=== PATIENT | male | born 1945 ===

== ENCOUNTER 2018-07-05 12:58 | Observation (INO) | payer MEDICARE, OTHER ==
--- NOTE | 2018-07-05 14:25 | ED PDOC ---
HPI: SOB/CHF/COPD Time Seen by Provider: 07/05/18 13:25 Chief Complaint (Nursing): Chest Pain Chief Complaint (Provider): Chest Pain History Per: Patient History/Exam Limitations: no limitations Onset/Duration Of Symptoms: Days (x 1) Current Symptoms Are (Timing): Still Present Associated Symptoms: Light-headedness Additional Complaint(s): 72 year old male with a history of hypertension, CAD, TURP prostate cancer presents with difficulty breathing and mild chest pain. He always feels short of breath. However, it is more so today and associated with weakness. Patient was sent from PMD's office where he was having a check up. Referred to ED for further evaluation. Patient has history of open heart surgery and removal of pace maker in the past due to infected leads. Denies vomiting, cough and abdominal pain. PMD: Dr. Saranya Almeida Past Medical History Reviewed: Historical Data, Nursing Documentation, Vital Signs Vital Signs: Last Vital Signs Temp 98.5 F 07/05/18 13:05 Pulse 56 L 07/05/18 13:16 Resp 18 07/05/18 13:05 BP 139/76 07/05/18 13:16 Pulse Ox 100 07/05/18 15:43 - Medical History PMH: Anxiety, Arthritis, Gastritis, HTN, Hypercholesterolemia Denies: HIV, Chronic Kidney Disease - Surgical History Surgical History: CABG (2008 pt states they think they had double bypass but is not sure), Coronary Stent (2 stents 2008), Endoscopy (2012), Pacemaker ( inserted 2004, removed 2007) - Family History Family History: States: Unknown Family Hx - Immunization History Hx Tetanus Toxoid Vaccination: No - Home Medications Home Medications: Ambulatory Orders Medication Instructions Recorded Alprazolam 1 mg PO TID 02/25/14 Atorvastatin [Lipitor] 10 mg PO HS 02/25/14 Omeprazole 20 mg PO BID 02/25/14 Carvedilol [Coreg] 25 mg PO Q12 03/17/17 Lisinopril/Hydrochlorothiazide 1 tab PO DAILY 03/17/17 [Lisinopril-Hctz 10-12.5 mg Tab] Aspirin [Adult Low Dose Aspirin EC] 1 tab PO DAILY 07/05/18 Lipase/Protease/Amylase [Vernon Dr 1 cap PO TID 07/05/18 24,000 Units Capsule] Ondansetron HCl [Zofran] 4 mg PO Q4 PRN 07/05/18 amLODIPine [Norvasc] 5 mg PO DAILY 07/05/18 - Allergies Allergies/Adverse Reactions: Allergies Allergy/AdvReac Type Severity Reaction Status Date / Time duloxetine [From Cymbalta] Allergy Intermediate RASH Verified 07/05/18 13:05 IV CONTRAST Allergy Intermediate RASH Uncoded 07/05/18 13:05 Review of Systems ROS Statement: Except As Marked, All Systems Reviewed And Found Negative Cardiovascular: Positive for: Chest Pain (mild) Respiratory: Positive for: Shortness of Breath Physical Exam - Reviewed Nursing Documentation Reviewed: Yes Vital Signs Reviewed: Yes - Physical Exam Appears: Positive for: Non-toxic, No Acute Distress Head Exam: Positive for: ATRAUMATIC, NORMAL INSPECTION, NORMOCEPHALIC Skin: Positive for: Normal Color, Warm, Dry Eye Exam: Positive for: EOMI, Normal appearance, PERRL Neck: Positive for: Normal, Painless ROM Cardiovascular/Chest: Positive for: Bradycardia (with regular rhythm) Respiratory: Positive for: Normal Breath Sounds. Negative for: Respiratory Distress Gastrointestinal/Abdominal: Positive for: Normal Exam, Soft. Negative for: Tenderness Extremity: Positive for: Normal ROM. Negative for: Deformity Neurologic/Psych: Positive for: Alert, Oriented (x 3). Negative for: Motor/ Sensory Deficits - Laboratory Results Result Diagrams: 07/05/18 14:44 07/05/18 14:44 - ECG O2 Sat by Pulse Oximetry: 100 (RA) Pulse Ox Interpretation: Normal Medical Decision Making Medical Decision Makin:18 --CMP --CBC --troponin I --CXR CXR shows no active disease. Time: 1543 Patient to be admitted under hospitalist due to bradycardia. Time: 1710 CT HEAD FINDINGS: HEMORRHAGE: No intracranial hemorrhage. BRAIN: There are mild chronic microangiopathic changes. There is no mass, mass effect or abnormal extra-axial fluid collection. There is no territorial infarction. The midline sagittal structures are normal. VENTRICLES: There is mild age-related global parenchymal volume loss and proportionate enlargement of the ventricles and cortical sulci. CALVARIUM: The skull base and calvarium are normal. PARANASAL SINUSES: Predominantly clear. MASTOID AIR CELLS: Predominantly clear. OTHER FINDINGS: None. IMPRESSION: No acute intracranial abnormality. Mild chronic microangiopathic changes and mild age-related global parenchymal volume loss. Scribe Attestation: Documented by Linn Nielsen, acting as a scribe for Tamir Snider MD Provider Scribe Attestation: All medical record entries made by the Scribe were at my direction and personally dictated by me. I have reviewed the chart and agree that the record accurately reflects my personal performance of the history, physical exam, medical decision making, and the department course for this patient. I have also personally directed, reviewed, and agree with the discharge instructions and disposition. Disposition - Disposition
--- NOTE | 2018-07-05 14:52 | RAD ---
Date of service: 07/05/2018 HISTORY: sob COMPARISON: No prior. FINDINGS: LUNGS: The lungs are well inflated and clear. PLEURA: No significant pleural effusion identified, no pneumothorax apparent. CARDIOVASCULAR: The heart is normal in size. Status post CABG. There is a right-sided lead which terminates in the right ventricle. OSSEOUS STRUCTURES: No significant abnormalities. VISUALIZED UPPER ABDOMEN: Normal. OTHER FINDINGS: None. IMPRESSION: No active pulmonary disease.
[2018-07-05 15:00] LABS: BASO # 0.1 K/uL (0.0-0.2); BASO % 1.2 % (0.0-2.0); EOS % 11.5 % (0.0-4.0); HEMOGLOBIN 14.9 g/dL (12.0-18.0); LYMPH # 1.7 K/uL (1.0-4.3); LYMPH % 19.5 % (20.0-40.0); MEAN CELL VOLUME 82.8 fl (80.0-94.0); MEAN CORPUSCULAR HEMOGLOBIN 27.8 pg (27.0-31.0); MEAN CORPUSCULAR HGB CONC 33.6 g/dL (33.0-37.0); MEAN PLATELET VOLUME 11.3 fl (7.2-11.7); MONO # 0.8 K/uL (0.0-0.8); MONO % 8.6 % (0.0-10.0); NEUT # 5.3 K/uL (1.8-7.0); NEUT % 59.2 % (50.0-75.0); NRBC % 0.2 % (0.0-0.0); RBC 5.36 Mil/uL (4.40-5.90); RED CELL DISTRIBUTION WIDTH 14.3 % (11.5-14.5); WHITE BLOOD COUNT 8.9 K/uL (4.8-10.8)
[2018-07-05 15:07] LABS: ALB/GLOB RATIO 1.1 (1.0-2.1); ALBUMIN 4.6 g/dL (3.5-5.0); CALCIUM 9.9 mg/dL (8.4-10.2)
[2018-07-05 15:25] LABS: TROPONIN I 0.013 ng/mL (0.00-0.120)
--- NOTE | 2018-07-05 16:53 | CT ---
Date of service: 07/05/2018 PROCEDURE: CT HEAD WITHOUT CONTRAST. HISTORY: lack balance COMPARISON: 05/15/2009. TECHNIQUE: Axial computed tomography images were obtained through the head/brain without intravenous contrast. Radiation dose: Total exam DLP = 813.56 mGy-cm. This CT exam was performed using one or more of the following dose reduction techniques: Automated exposure control, adjustment of the mA and/or kV according to patient size, and/or use of iterative reconstruction technique. FINDINGS: HEMORRHAGE: No intracranial hemorrhage. BRAIN: There are mild chronic microangiopathic changes. There is no mass, mass effect or abnormal extra-axial fluid collection. There is no territorial infarction. The midline sagittal structures are normal. VENTRICLES: There is mild age-related global parenchymal volume loss and proportionate enlargement of the ventricles and cortical sulci. CALVARIUM: The skull base and calvarium are normal. PARANASAL SINUSES: Predominantly clear. MASTOID AIR CELLS: Predominantly clear. OTHER FINDINGS: None. IMPRESSION: No acute intracranial abnormality. Mild chronic microangiopathic changes and mild age-related global parenchymal volume loss.
[2018-07-05] MEDS ORDERED: LIPASE PO SCH (17:00)
[2018-07-05] MEDS ORDERED: PROTEASE PO SCH (17:00)
[2018-07-05] MEDS ORDERED: AMYLASE PO SCH (17:00)
--- NOTE | 2018-07-05 17:19 | CP.PCM.HP ---
History of Present Illness - History of Present Illness History of Present Illness: 72 y/o male with past medical history of HTN, HLD, CAD s/p CABG, Prostate cancer s/p prostatectomy, Anxiety, GERD, and chronic pancreatitis presents to ED reporting feels more short of breath than usual, weakness in lower extremities, and having poor balance. Patient was sent from PMD's office where he was having a check up. In the PMD's office patient was found to have bradycardia in EKG, associated with his symptoms. At the time of ER evaluation patient denies chest pain, dizziness/lightheadedness, blurry vision, LOC, headaches, palpitations. Patient is a poor historian. PMHx: HTN, HLD, CAD s/p CABG, Prostate cancer s/p prostatectomy, Anxiety, GERD, and chronic pancreatitis Shx: CABG Social hx: former smoker, denies ETOH, and illicit drugs Present on Admission - Present on Admission Any Indicators Present on Admission: No History of DVT/PE: No History of Uncontrolled Diabetes: No Urinary Catheter: No Decubitus Ulcer Present: No Review of Systems - Review of Systems All systems: reviewed and no additional remarkable complaints except (as) Past Patient History - Past Medical History & Family History Past Medical History?: Yes - Past Social History Smoking Status: Former Smoker - CARDIAC Hx Hypercholesterolemia: Yes Hx Hypertension: Yes Hx Pacemaker: Yes (inserted 2004, removed 2007) - PULMONARY Hx Respiratory Disorders: No - NEUROLOGICAL Hx Neurological Disorder: No - HEENT Hx HEENT Problems: Yes Hx Cataracts: Yes (b/l eyes) Hx Glaucoma: Yes - RENAL Hx Chronic Kidney Disease: No - ENDOCRINE/METABOLIC Hx Endocrine Disorders: Yes (pt states they have a swollen pancreas) - HEMATOLOGICAL/ONCOLOGICAL Hx Human Immunodeficiency Virus (HIV): No - INTEGUMENTARY Hx Dermatological Problems: Yes Hx Eczema: Yes - MUSCULOSKELETAL/RHEUMATOLOGICAL Hx Arthritis: Yes - GASTROINTESTINAL Hx Gastritis: Yes - GENITOURINARY/GYNECOLOGICAL Hx Genitourinary Disorders: Yes Hx Prostate Cancer: Yes Other/Comment: bladder tumor. Hx of prostate cancer s/p prostectomy. - PSYCHIATRIC Hx Anxiety: Yes - SURGICAL HISTORY Hx Coronary Artery Bypass Graft: Yes (2008 pt states they think they had double bypass but is not sure) Hx Coronary Stent: Yes (2 stents 2008) - ANESTHESIA Hx Anesthesia: Yes Hx Anesthesia Reactions: No Hx Malignant Hyperthermia: No Meds Allergies/Adverse Reactions: Allergies Allergy/AdvReac Type Severity Reaction Status Date / Time duloxetine [From Cymbalta] Allergy Intermediate RASH Verified 07/05/18 13:05 IV CONTRAST Allergy Intermediate RASH Uncoded 07/05/18 13:05 Physical Exam - Constitutional Appears: Non-toxic, No Acute Distress - Eye Exam Eye Exam: Normal appearance - ENT Exam ENT Exam: Mucous Membranes Moist - Respiratory Exam Respiratory Exam: Clear to Auscultation Bilateral, NORMAL BREATHING PATTERN. absent: Rales, Rhonchi, Wheezes - Cardiovascular Exam Cardiovascular Exam: REGULAR RHYTHM, +S1, +S2 Additional comments: Murmur - GI/Abdominal Exam GI & Abdominal Exam: Normal Bowel Sounds, Soft. absent: Distended, Guarding, Rebound, Rigid - Extremities Exam Extremities exam: Positive for: normal inspection. Negative for: calf tenderness, pedal edema - Neurological Exam Neurological exam: Alert, Oriented x3 - Psychiatric Exam Psychiatric exam: Normal Affect, Normal Mood - Skin Skin Exam: Dry, Intact, Normal Color Results - Vital Signs Recent Vital Signs: Last Vital Signs Temp 98.5 F 07/05/18 13:05 Pulse 56 L 07/05/18 13:16 Resp 18 07/05/18 13:05 BP 139/76 07/05/18 13:16 Pulse Ox 100 07/05/18 15:43 - Labs Result Diagrams: 07/05/18 14:44 07/05/18 14:44 Labs: Laboratory Results - last 24 hr 07/05/18 07/05/18 14:44 14:44 WBC 8.9 RBC 5.36 Hgb 14.9 Hct 44.4 MCV 82.8 MCH 27.8 MCHC 33.6 RDW 14.3 Plt Count 155 MPV 11.3 Neut % (Auto) 59.2 Lymph % (Auto) 19.5 L [place] % (Auto) 8.6 Eos % (Auto) 11.5 H Baso % (Auto) 1.2 Neut # (Auto) 5.3 Lymph # (Auto) 1.7 [place] # (Auto) 0.8 Eos # (Auto) 1.0 H Baso # (Auto) 0.1 Sodium 141 Potassium 4.6 Chloride 105 Carbon Dioxide 26 Anion Gap 15 BUN 26 H Creatinine 1.5 Est GFR ( Amer) 56 Est GFR (Non-Af Amer) 46 Random Glucose 79 Calcium 9.9 Total Bilirubin 0.8 AST 29 ALT 18 L D Alkaline Phosphatase 61 Troponin I 0.0130 Total Protein 8.9 H Albumin 4.6 Globulin 4.3 H Albumin/Globulin Ratio 1.1 Assessment & Plan - Assessment and Plan (Free Text) Assessment: 72 y/o male with extensive past medical history including HTN, HLD, CAD s/p CABG , admitted with suspected symptomatic bradycardia. Plan: Bradycardia -Telemetry -suspected symptomatic -night monitor -troponin I x1 negative -f/u repeat troponin I x2 Q6 -EKG in ER showed sinus bradycardia -Echocardiogram ordered, f/u results -will hold home coreg due to suspected symptomatic bradycardia -Cardiology consult, recommendations are appreciated CAD s/p CABG -troponin I x1 negative -f/u repeat troponin I x2 Q6 -c/w home aspirin -c/w home statin -will hold home coreg due to suspected symptomatic bradycardia Hypertension -C/w home medications DVT prophylaxis -Lovenox Sc - Date & Time Date: 07/05/18 Time: 16:00
[2018-07-05] MEDS: Pantoprazole 20 mg EC Tab PO SCH (17:42)
[2018-07-06] MEDS: Pantoprazole 20 mg EC Tab PO SCH (08:25)
[2018-07-06] MEDS ORDERED: Enoxaparin 40 mg Syringe SC SCH (09:00)
--- NOTE | 2018-07-06 09:01 | CP.PCM.CON ---
History of Present Illness - History of Present Illness History of Present Illness: The patient was hospitalized from his primary care physician's office when severe bradycardia was noted. The patient gives history of having required coronary bypass graft surgery approximately 20 years back following anginal episodes which were investigated by a coronary angiogram. The patient subsequently has needed coronary stenting approximately 6-7 years back. He denies any history of diabetes or smoking but has been a hypertensive for number of years. Following coronary bypass graft surgery the patient has had a persistent unsteady gait and has had number of falls. At this point he uses a cane to walk and barely be able to walk a block. He has not experienced any effort related chest pain though he does describe severe chest discomfort during sex within the last couple of weeks. There are no symptoms of congestive cardiac failure. Physical examination shows a pleasant elderly man who is able to lie virtually flat and carry on a conversation. His heart rate was 60 bpm on the telemetry and his blood pressure was 122/74 mmHg. His jugular venous pressure was not elevated and there was no edema over his lower extremities. A scar of sternotomy was evident. A scar in the right infraclavicular area was seen where a pacemaker had been implanted. The patient gives history of having this pacemaker removed when it was infected few years back. The patient has not had a new pacemaker implanted. There were no carotid bruits. The apex was in the fifth space the first and second heart sounds were normal. There was no murmur or gallop there were no rales. His abdomen was soft liver and spleen are not palpable. Romberg sign was positive. His electrocardiogram at admission showed sinus bradycardia with no Q waves on the electrocardiogram there were inverted T waves seen in aVL only. Troponins 3 were negative for any evidence of myocyte injury. The rest of his labs where noted. Impression: Sinus bradycardia secondary to beta blockade. Carvedilol has been discontinued. The patient may be allowed to return home on a smaller dose of carvedilol. He should undergo a nuclear stress test to evaluate evidence off potentially ischemic myocardium. He should also have a neurological evaluation to fully understand his ataxic gait. Past Patient History - Past Medical History & Family History Past Medical History?: Yes - Past Social History Smoking Status: Former Smoker - CARDIAC Hx Hypercholesterolemia: Yes Hx Hypertension: Yes Hx Pacemaker: Yes (inserted 2004, removed 2007) - PULMONARY Hx Respiratory Disorders: No - NEUROLOGICAL Hx Neurological Disorder: No - HEENT Hx HEENT Problems: Yes Hx Cataracts: Yes (b/l eyes) Hx Glaucoma: Yes - RENAL Hx Chronic Kidney Disease: No - ENDOCRINE/METABOLIC Hx Endocrine Disorders: Yes (pt states they have a swollen pancreas) - HEMATOLOGICAL/ONCOLOGICAL Hx Human Immunodeficiency Virus (HIV): No - INTEGUMENTARY Hx Dermatological Problems: Yes Hx Eczema: Yes - MUSCULOSKELETAL/RHEUMATOLOGICAL Hx Arthritis: Yes - GASTROINTESTINAL Hx Gastritis: Yes - GENITOURINARY/GYNECOLOGICAL Hx Genitourinary Disorders: Yes Hx Prostate Cancer: Yes Other/Comment: bladder tumor. Hx of prostate cancer s/p prostectomy. - PSYCHIATRIC Hx Anxiety: Yes - SURGICAL HISTORY Hx Coronary Artery Bypass Graft: Yes (2008 pt states they think they had double bypass but is not sure) Hx Coronary Stent: Yes (2 stents 2008) - ANESTHESIA Hx Anesthesia: Yes Hx Anesthesia Reactions: No Hx Malignant Hyperthermia: No Meds Allergies/Adverse Reactions: Allergies Allergy/AdvReac Type Severity Reaction Status Date / Time duloxetine [From Cymbalta] Allergy Intermediate RASH Verified 07/05/18 13:05 IV CONTRAST Allergy Intermediate RASH Uncoded 07/05/18 13:05 - Medications Medications: Current Medications Amlodipine Besylate (Norvasc) 5 mg PO DAILY [facility] Last Admin: 07/06/18 08:52 Dose: 5 mg Aspirin (Ecotrin) 81 mg PO DAILY [facility] Last Admin: 07/06/18 08:49 Dose: 81 mg Atorvastatin Calcium (Lipitor) 10 mg PO HS [facility] Last Admin: 07/05/18 21:51 Dose: 10 mg Enoxaparin Sodium (Lovenox) 40 mg SC DAILY [facility] PRN Reason: Protocol Last Admin: 07/06/18 08:46 Dose: 40 mg Home Med (Lipase/Protease/Amylase [Creon Dr 24,000 Units Capsule]) 1 cap PO TID [facility] Hydrochlorothiazide (Microzide) 12.5 mg PO DAILY [facility] Last Admin: 07/06/18 08:51 Dose: 12.5 mg Lisinopril (Zestril) 10 mg PO DAILY [facility] Last Admin: 07/06/18 08:51 Dose: 10 mg Pantoprazole Sodium (Protonix Ec Tab) 20 mg PO BIDAC [facility] Last Admin: 07/06/18 08:25 Dose: 20 mg Results - Vital Signs Recent Vital Signs: Last Vital Signs Temp 98 F 07/06/18 04:53 Pulse 60 07/06/18 08:52 Resp 16 07/06/18 04:53 BP 130/68 07/06/18 08:52 Pulse Ox 98 07/06/18 04:53 - Labs Result Diagrams: 07/05/18 14:44 07/05/18 14:44 Labs: Laboratory Results - last 24 hr 07/05/18 07/05/18 07/05/18 14:44 14:44 19:39 WBC 8.9 RBC 5.36 Hgb 14.9 Hct 44.4 MCV 82.8 MCH 27.8 MCHC 33.6 RDW 14.3 Plt Count 155 MPV 11.3 Neut % (Auto) 59.2 Lymph % (Auto) 19.5 L [place] % (Auto) 8.6 Eos % (Auto) 11.5 H Baso % (Auto) 1.2 Neut # (Auto) 5.3 Lymph # (Auto) 1.7 [place] # (Auto) 0.8 Eos # (Auto) 1.0 H Baso # (Auto) 0.1 Sodium 141 Potassium 4.6 Chloride 105 Carbon Dioxide 26 Anion Gap 15 BUN 26 H Creatinine 1.5 Est GFR ( Amer) 56 Est GFR (Non-Af Amer) 46 Random Glucose 79 Calcium 9.9 Total Bilirubin 0.8 AST 29 ALT 18 L D Alkaline Phosphatase 61 Troponin I 0.0130 < 0.0120 Total Protein 8.9 H Albumin 4.6 Globulin 4.3 H Albumin/Globulin Ratio 1.1 Vitamin B12 483 TSH 3rd Generation 0.71 07/06/18 01:15 WBC RBC Hgb Hct MCV MCH MCHC RDW Plt Count MPV Neut % (Auto) Lymph % (Auto) [place] % (Auto) Eos % (Auto) Baso % (Auto) Neut # (Auto) Lymph # (Auto) [place] # (Auto) Eos # (Auto) Baso # (Auto) Sodium Potassium Chloride Carbon Dioxide Anion Gap BUN Creatinine Est GFR ( Amer) Est GFR (Non-Af Amer) Random Glucose Calcium Total Bilirubin AST ALT Alkaline Phosphatase Troponin I < 0.0120 Total Protein Albumin Globulin Albumin/Globulin Ratio Vitamin B12 TSH 3rd Generation
[2018-07-06 09:26] VITALS: O2SAT 99
--- NOTE | 2018-07-06 10:07 | CP.PCM.DIS ---
Provider - Provider Date of Admission: 07/05/18 15:38 Attending physician: Wyatt Denis MD Time Spent in preparation of Discharge (in minutes): 35 Hospital Course - Lab Results Lab Results: Most Recent Lab Values WBC 8.9 K/uL (4.8-10.8) 07/05/18 14:44 RBC 5.36 Mil/uL (4.40-5.90) 07/05/18 14:44 Hgb 14.9 g/dL (12.0-18.0) 07/05/18 14:44 Hct 44.4 % (35.0-51.0) 07/05/18 14:44 MCV 82.8 fl (80.0-94.0) 07/05/18 14:44 MCH 27.8 pg (27.0-31.0) 07/05/18 14:44 MCHC 33.6 g/dL (33.0-37.0) 07/05/18 14:44 RDW 14.3 % (11.5-14.5) 07/05/18 14:44 Plt Count 155 K/uL (130-400) 07/05/18 14:44 MPV 11.3 fl (7.2-11.7) 07/05/18 14:44 Neut % (Auto) 59.2 % (50.0-75.0) 07/05/18 14:44 Lymph % (Auto) 19.5 % (20.0-40.0) L 07/05/18 14:44 [place] % (Auto) 8.6 % (0.0-10.0) 07/05/18 14:44 Eos % (Auto) 11.5 % (0.0-4.0) H 07/05/18 14:44 Baso % (Auto) 1.2 % (0.0-2.0) 07/05/18 14:44 Neut # (Auto) 5.3 K/uL (1.8-7.0) 07/05/18 14:44 Lymph # (Auto) 1.7 K/uL (1.0-4.3) 07/05/18 14:44 [place] # (Auto) 0.8 K/uL (0.0-0.8) 07/05/18 14:44 Eos # (Auto) 1.0 K/uL (0.0-0.7) H 07/05/18 14:44 Baso # (Auto) 0.1 K/uL (0.0-0.2) 07/05/18 14:44 Sodium 141 mmol/l (132-148) 07/05/18 14:44 Potassium 4.6 MMOL/L (3.6-5.0) 07/05/18 14:44 Chloride 105 mmol/L (98-107) 07/05/18 14:44 Carbon Dioxide 26 mmol/L (22-30) 07/05/18 14:44 Anion Gap 15 (10-20) 07/05/18 14:44 BUN 26 mg/dl (9-20) H 07/05/18 14:44 Creatinine 1.5 mg/dl (0.8-1.5) 07/05/18 14:44 Est GFR ( Amer) 56 07/05/18 14:44 Est GFR (Non-Af Amer) 46 07/05/18 14:44 Random Glucose 79 mg/dL (75-110) 07/05/18 14:44 Calcium 9.9 mg/dL (8.4-10.2) 07/05/18 14:44 Total Bilirubin 0.8 mg/dl (0.2-1.3) 07/05/18 14:44 AST 29 U/L (17-59) 07/05/18 14:44 ALT 18 U/L (21-72) L D 07/05/18 14:44 Alkaline Phosphatase 61 U/L (38-126) 07/05/18 14:44 Troponin I < 0.0120 ng/mL (0.00-0.120) 07/06/18 01:15 Total Protein 8.9 G/DL (6.3-8.2) H 07/05/18 14:44 Albumin 4.6 g/dL (3.5-5.0) 07/05/18 14:44 Globulin 4.3 gm/dL (2.2-3.9) H 07/05/18 14:44 Albumin/Globulin Ratio 1.1 (1.0-2.1) 07/05/18 14:44 Vitamin B12 483 pg/mL (239-931) 07/05/18 19:39 TSH 3rd Generation 0.71 mIU/ML (0.46-4.68) 07/05/18 19:39 - Hospital Course Hospital Course: 72 y/o male with past medical history of HTN, HLD, CAD s/p CABG, Prostate cancer s/p prostatectomy, Anxiety, GERD, and chronic pancreatitis presented to ED reporting feels more short of breath than usual, weakness in lower extremities, and having poor balance. Patient was sent from PMD's office where he was having a routine health exam. In the PMD's office patient was found to have bradycardia in EKG, associated with his symptoms. At the time of ER evaluation patient denies chest pain, dizziness/lightheadedness, blurry vision, LOC, headaches, palpitations. Patient is a poor historian. Patient was sent from [facility] and admitted to telemetry for symptomatic bradycardia. Bradycardia -Troponin x3 negative -EKG in ER: sinus bradycardia -Cardiology consult (Dr. Geovanni Stack): Sinus bradycardia secondary to beta blockade. Carvedilol has been discontinued. The patient may be allowed to return home on a smaller dose of carvedilol. He should undergo a nuclear stress test to evaluate evidence off potentially ischemic myocardium. He should also have a neurological evaluation to fully understand his ataxic gait. -Coreg dose decreased to 6.25 mg Q12 (previously 25 mg Q12) -Follow-up ECHO results Ataxic Gait -TSH wnl (0.71) -B12 wnl (483) -Physical Therapy RX CAD s/p CABG -Troponin I x1 negative -Continue home aspirin -Continue home statin Hypertension -Continue home medications, see Coreg change above Patient is still tired but feels much better than upon admission. He denies dizziness, headache, chills, vomiting, and diarrhea. He is medically cleared for discharge to home, recommend to follow up with PMD ([facility]) in 2-[address] Geovanni Stack within 1 week. Discharge Exam - Head Exam Head Exam: ATRAUMATIC, NORMAL INSPECTION, NORMOCEPHALIC - Eye Exam Eye Exam: Normal appearance Pupil Exam: NORMAL ACCOMODATION - Neck Exam Neck exam: Full Rom - Respiratory Exam Respiratory Exam: Clear to PA & Lateral, NORMAL BREATHING PATTERN - Cardiovascular Exam Cardiovascular Exam: REGULAR RHYTHM - GI/Abdominal Exam GI & Abdominal Exam: absent: Rebound - Extremities Exam Additional comments: bilateral weakness lower extremities - Neurological Exam Neurological exam: Alert Additional comments: tired - Psychiatric Exam Psychiatric exam: Normal Affect, Normal Mood - Skin Skin Exam: Normal Color, Warm Discharge Plan - Discharge Medications Prescriptions: amLODIPine [Norvasc] 5 mg PO DAILY #30 tab Aspirin [Adult Low Dose Aspirin EC] 1 tab PO DAILY #30 tablet. Atorvastatin [Lipitor] 10 mg PO HS #30 tab Carvedilol [Coreg] 6.25 mg PO BID #60 tab Lipase/Protease/Amylase [Vernon Burrell 24,000 Units Capsule] 1 cap PO TID #90 capsule. Lisinopril/Hydrochlorothiazide [Lisinopril-Hctz 10-12.5 mg Tab] 1 tab PO DAILY # 30 tablet - Follow Up Plan Condition: FAIR Disposition: HOME/ ROUTINE Additional Instructions: Follow up with [facility] in 2-3 days. Follow up with Dr Geovanni Stack within 1 week. [facility]] Praful Stack MD [Staff Provider] -
[2018-07-06 12:16] VITALS: BP 116/71; PULSE 62; RESP 18; TEMP 98
--- NOTE | 2018-07-06 16:32 | CARD ---
APPROVED REPORT Date of service: 07/06/2018 EXAM: Two-dimensional and M-mode echocardiogram with Doppler and color Doppler. Other Information Quality : GoodRhythm : Pacemaker INDICATION Abnormal EKG/Arrhythmia Bradycardia 2D DIMENSIONS IVSd0.93 (0.7-1.1cm)LVDd4.59 (3.9-5.9cm) LVOT Diameter2.23 (1.8-2.4cm)PWd0.91 (0.7-1.1cm) IVSs1.16 (0.8-1.2cm)LVDs3.21 (2.5-4.0cm) FS (%) 30.1 %PWs1.00 (0.8-1.2cm) M-Mode DIMENSIONS Left Atrium (MM)4.38 (2.5-4.0cm)IVSd0.74 (0.7-1.1cm) Aortic Root3.20 (2.2-3.7cm)LVDd4.94 (4.0-5.6cm) Aortic Cusp Exc.2.29 (1.5-2.0cm)PWd0.74 (0.7-1.1cm) IVSs1.10 cmFS (%) 34 % LVDs3.28 (2.0-3.8cm)PWs1.05 cm Aortic Valve AoV Peak Hkihriot316.4cm/sAoV VTI27.3cmAO Peak GR.8mmHg LVOT Peak Sikmfeia93.6cm/sLVOT VTI18.96cmAO Mean GR.4mmHg AI P 1/2 Gjta498cy Mitral Valve MV E Pqutqiee41.2cm/sMV DECEL LYIX850ibRA A Rbfulyrm66.8cm/s MV SVH01cfU/A ratio0.7MVA (PHT)3.00cm2 TDI Lateral E' Peak V11.65cm/sMedial E' Peak V6.11cm/sE/Lateral E'5.7 E/Medial E'10.8 Pulmonary Valve PV Peak Lljqhxfd48.1cm/s Tricuspid Valve TR Peak Hjwnktgw188ld/sRAP GUOQPRYF84pyDdUX Peak Gr.19mmHg ZUSL22ycRe LEFT VENTRICLE The left ventricle is normal size. There is normal left ventricular wall thickness. The left ventricular systolic function is normal. The estimated ejection fraction is 55% No regional wall motion abnormalities noted.. Transmitral Doppler flow pattern is Grade I-abnormal relaxation pattern. No left ventricle thrombus noted on this study. There is no ventricular septal defect visualized. There is no mass noted in the left ventricle. RIGHT VENTRICLE The right ventricle is normal size. There is normal right ventricular wall thickness. The right ventricular systolic function is normal. RV pacemaker lead present ATRIA The left atrium size is mildly dilated The right atrium size is normal. RA pacemaker lead not clearly seen, but suspect present as patient in NSR The interatrial septum is intact with no evidence for an atrial septal defect. AORTIC VALVE The aortic valve is normal in structure. Mild aortic regurgitation is present. There is no aortic valvular stenosis. MITRAL VALVE The mitral valve is normal in structure. There is no mitral valve stenosis. There is mild mitral valve regurgitation noted. TRICUSPID VALVE The tricuspid valve is normal in structure. There is mild tricuspid valve regurgitation noted. PASP within normal limiits PULMONIC VALVE The pulmonary valve is normal in structure. There is no pulmonic valvular regurgitation. GREAT VESSELS The aortic root is normal in size. The ascending aorta is normal in size. The pulmonary artery is normal. The IVC is normal in size and collapses >50% with inspiration. PERICARDIAL EFFUSION There is no pericardial effusion. <Conclusion> Mild aortic insufficiency Mild mitral insufficiency Mild TR with normal PASP Dilated left atrium Normal LV systolic function with doppler hemodynamics consistent with abnormal relaxation RV pacemaker lead; clinical correlation advised as to RA lead The estimated ejection fraction is 55%
== END 2018-07-06 14:35 | disposition home or self-care (01) ==
LOC: H.ER 12:58 → H.ERHOLD 15:38 → H.TEL 18:03
PROVIDERS: ADMIT Hospitalist; ATTEND Hospitalist
DX: R00.1 Bradycardia, unspecified (principal); E78.5 Hyperlipidemia, unspecified; I25.10 Atherosclerotic heart disease of native coronary artery without angina pectoris; Z95.1 Presence of aortocoronary bypass graft; E78.00 Pure hypercholesterolemia, unspecified; Z95.0 Presence of cardiac pacemaker; Z87.891 Personal history of nicotine dependence; K21.9 Gastro-esophageal reflux disease without esophagitis; K86.1 Other chronic pancreatitis; Z85.46 Personal history of malignant neoplasm of prostate; Z95.5 Presence of coronary angioplasty implant and graft; F41.9 Anxiety disorder, unspecified; M19.90 Unspecified osteoarthritis, unspecified site; K29.70 Gastritis, unspecified, without bleeding; R26.0 Ataxic gait; Z91.041 Radiographic dye allergy status; T44.7X5A Adverse effect of beta-adrenoreceptor antagonists, initial encounter; R53.1 Weakness; E55.9 Vitamin D deficiency, unspecified; N17.9 Acute kidney failure, unspecified; I12.9 Hypertensive chronic kidney disease with stage 1 through stage 4 chronic kidney disease, or unspecified chronic kidney disease; N18.3 Chronic kidney disease, stage 3 (moderate)
CPT/HCPCS: 36415; 70450; 71045; 80053; 82306; 82607; 84443; 84484; 85025; 93306; 97161; 99285; G0378; G8978; G8979; J1650

== ENCOUNTER 2018-07-16 11:26 | Emergency (ER) | payer MEDICARE, OTHER ==
[2018-07-16 11:30] VITALS: BMI 25.7
[2018-07-16 11:31] VITALS: O2SAT 98
[2018-07-16] MEDS ORDERED: Sodium Chloride 0.9% 500 ML IV ONE (12:16)
[2018-07-16 13:38] LABS: BASO # 0.1 K/uL (0.0-0.2); BASO % 1.2 % (0.0-2.0); EOS # 0.8 K/uL (0.0-0.7); EOS % 9.9 % (0.0-4.0); HEMOGLOBIN 14.1 g/dL (12.0-18.0); LYMPH # 1.1 K/uL (1.0-4.3); LYMPH % 13.4 % (20.0-40.0); MEAN CELL VOLUME 82.8 fl (80.0-94.0); MEAN CORPUSCULAR HEMOGLOBIN 27.7 pg (27.0-31.0); MEAN CORPUSCULAR HGB CONC 33.5 g/dL (33.0-37.0); MEAN PLATELET VOLUME 10.6 fl (7.2-11.7); MONO # 0.8 K/uL (0.0-0.8); MONO % 9.1 % (0.0-10.0); NEUT # 5.6 K/uL (1.8-7.0); NEUT % 66.4 % (50.0-75.0); RBC 5.09 Mil/uL (4.40-5.90); RED CELL DISTRIBUTION WIDTH 14.7 % (11.5-14.5); WHITE BLOOD COUNT 8.5 K/uL (4.8-10.8)
[2018-07-16 13:59] LABS: ALT/SGPT 33 U/L (21-72); AST/SGOT 26 U/L (17-59); BLOOD UREA NITROGEN 15 mg/dl (9-20); GFR NON-AFRICAN AMERICAN 60; LIPASE 254 U/L (23-300)
--- NOTE | 2018-07-16 14:37 | CT ---
Date of service: 07/16/2018 PROCEDURE: CT HEAD WITHOUT CONTRAST. HISTORY: DIZZY/VERTIGO COMPARISON: CT head dated 07/05/2018 TECHNIQUE: Axial computed tomography images were obtained through the head/brain without intravenous contrast. Radiation dose: Total exam DLP = 788.4 mGy-cm. This CT exam was performed using one or more of the following dose reduction techniques: Automated exposure control, adjustment of the mA and/or kV according to patient size, and/or use of iterative reconstruction technique. FINDINGS: HEMORRHAGE: No intracranial hemorrhage. BRAIN: No mass effect or edema. Atrophy. Chronic microvascular ischemic changes. 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 No hydrocephalus. CALVARIUM: Unremarkable. PARANASAL SINUSES: Unremarkable as visualized. No significant inflammatory changes. MASTOID AIR CELLS: Unremarkable as visualized. No inflammatory changes. OTHER FINDINGS: None. IMPRESSION: No acute intracranial pathology. Age-related changes. No significant interval change.
--- NOTE | 2018-07-16 15:31 | ED PDOC ---
HPI: General Adult Time Seen by Provider: 07/16/18 15:29 Chief Complaint (Nursing): GI Problem Chief Complaint (Provider): NAUSEA History Per: Patient (72 Y/O MALE H/O ANXIETY/ CAD/HTN HERE WITH ONGOING NAUSEA X 1 YEAR WORSENING X 3 WEEKS. DENEIS ANY FEVERS/CHILLS/DIARRHEA/VOMITING/CP. HAS BEEN SEEN AT CLINIC AND IS ON OMEPRAZOLE. NOTES ROOM SPINNING ASSOCIATED WITH DIZZINESS.) Past Medical History Reviewed: Historical Data, Nursing Documentation, Vital Signs Vital Signs: Last Vital Signs Temp 98.0 F 07/16/18 16:02 Pulse 84 07/16/18 16:02 Resp 19 07/16/18 16:02 BP 132/74 07/16/18 16:02 Pulse Ox 98 07/16/18 16:02 - Medical History PMH: Anxiety, Arthritis, Gastritis, HTN, Hypercholesterolemia, Hyperlipidemia Denies: HIV, Chronic Kidney Disease - Surgical History Surgical History: CABG (2008 pt states they think they had double bypass but is not sure), Coronary Stent (2 stents 2008), Endoscopy (2012), Pacemaker (inserted 2004, removed 2007) - Family History Family History: States: Unknown Family Hx - Immunization History Hx Tetanus Toxoid Vaccination: No - Home Medications Home Medications: Ambulatory Orders Medication Instructions Recorded RX: Omeprazole 20 mg PO BID 02/25/14 Cholecalciferol (Vitamin D3) 50,000 unit PO QWK #8 capsule 07/06/18 [Vitamin D3] RX: Aspirin [Adult Low Dose 1 tab PO DAILY #30 tablet. 07/06/18 Aspirin EC] RX: Atorvastatin [Lipitor] 10 mg PO HS #30 tab 07/06/18 RX: Carvedilol [Coreg] 6.25 mg PO BID #60 tab 07/06/18 RX: Lipase/Protease/Amylase [Creon 1 cap PO TID #90 capsule. 07/06/18 24,000 Units Capsule] RX: Lisinopril/Hydrochlorothiazide 1 tab PO DAILY #30 tablet 07/06/18 [Lisinopril-Hctz 10-12.5 mg Tab] RX: amLODIPine [Norvasc] 5 mg PO DAILY #30 tab 07/06/18 Meclizine [Antivert] 12.5 mg PO Q6 PRN #12 tab 07/16/18 Ondansetron [Zofran Odt] 4 mg PO Q8 PRN #3 odt 07/16/18 Ranitidine HCl [Zantac 75] 75 mg PO BID #10 tablet 07/16/18 - Allergies Allergies/Adverse Reactions: Allergies Allergy/AdvReac Type Severity Reaction Status Date / Time duloxetine [From Cymbalta] Allergy Intermediate RASH Verified 07/05/18 13:05 IV CONTRAST Allergy Intermediate RASH Uncoded 07/05/18 13:05 Review of Systems ROS Statement: Except As Marked, All Systems Reviewed And Found Negative Physical Exam - Reviewed Nursing Documentation Reviewed: Yes Vital Signs Reviewed: Yes - Physical Exam Appears: Positive for: Well, Non-toxic, No Acute Distress Head Exam: Positive for: ATRAUMATIC, NORMAL INSPECTION, NORMOCEPHALIC Skin: Positive for: Normal Color, Warm, DRY Eye Exam: Positive for: EOMI, Normal appearance, PERRL ENT: Positive for: Normal ENT Inspection Neck: Positive for: Normal, Painless ROM Cardiovascular/Chest: Positive for: Regular Rate, Rhythm Respiratory: Positive for: CNT, Normal Breath Sounds Gastrointestinal/Abdominal: Positive for: Normal Exam, Soft Back: Positive for: Normal Inspection Extremity: Positive for: Normal ROM Neurologic/Psych: Positive for: Alert, Oriented - Laboratory Results Result Diagrams: 07/16/18 13:25 07/16/18 13:25 - ECG ECG Rhythm: Positive for: Sinus Bradycardia (SINUS BRADYCARDIA 57BPM; T WAVE V1 V2 OLD COMPARED TO OLD EKG) O2 Sat by Pulse Oximetry: 98 - Progress ED Course And Treament: HEAD CT: NAD REGLAN 10 MG IV PEPCID 20 MG IV X 1 DOSE PATIENT NOTES IMPROVEMENT Disposition - Clinical Impression Clinical Impression: Gastritis, Nausea - Patient ED Disposition Is Patient to be Admitted: No - Disposition Disposition: Routine/Home Disposition Time: 15:34 Condition: FAIR Prescriptions: Meclizine [Antivert] 12.5 mg PO Q6 PRN #12 tab PRN Reason: Dizziness Ondansetron [Zofran Odt] 4 mg PO Q8 PRN #3 odt PRN Reason: Nausea/Vomiting Ranitidine HCl [Zantac 75] 75 mg PO BID #10 tablet Instructions: Gastritis (DC) Forms: [employer]Bill (German)
[2018-07-16 16:02] VITALS: BP 132/74; PULSE 84; RESP 19; TEMP 98
--- NOTE | 2018-07-16 23:03 | CARD ---
APPROVED REPORT Date of service: 07/16/2018 EKG Measurement Heart [id number] <Conclusion> Sinus bradycardia Otherwise normal ECG
== END 2018-07-16 16:02 | disposition home or self-care (01) ==
LOC: H.ER 11:26
DX: K29.70 Gastritis, unspecified, without bleeding (principal); R11.0 Nausea; I10 Essential (primary) hypertension; Z95.0 Presence of cardiac pacemaker; Z95.1 Presence of aortocoronary bypass graft; Z95.5 Presence of coronary angioplasty implant and graft
CPT/HCPCS: 70450; 80053; 83690; 83735; 84100; 84484; 85025; 93005; 96374; 96375; 99284; J2765; J7040

== ENCOUNTER 2018-10-25 18:13 | Observation (INO) | payer MEDICARE, OTHER ==
[2018-10-25 18:13] VITALS: BMI 25.7
[2018-10-25 19:50] LABS: BASO # 0.1 K/uL (0.0-0.2); EOS # 1.2 K/uL (0.0-0.7); EOS % 12.4 % (0.0-4.0); HEMOGLOBIN 13.2 g/dL (12.0-18.0); LYMPH # 1.2 K/uL (1.0-4.3); LYMPH % 12.9 % (20.0-40.0); MEAN CORPUSCULAR HEMOGLOBIN 27.2 pg (27.0-31.0); MEAN CORPUSCULAR HGB CONC 32.7 g/dL (33.0-37.0); MEAN PLATELET VOLUME 10.2 fl (7.2-11.7); MONO # 0.9 K/uL (0.0-0.8); MONO % 9.9 % (0.0-10.0); NEUT % 63.8 % (50.0-75.0); NRBC % 0.1 % (0.0-0.0); RBC 4.87 Mil/uL (4.40-5.90); RED CELL DISTRIBUTION WIDTH 14.4 % (11.5-14.5); WHITE BLOOD COUNT 9.4 K/uL (4.8-10.8)
[2018-10-25 19:54] LABS: INR 1.1; PROTHROMBIN TIME 12.2 Seconds (9.8-13.1)
[2018-10-25 19:57] LABS: PARTIAL THROMBOPLASTIN TIME 34.2 Seconds (25.6-37.1)
[2018-10-25 20:00] LABS: VENOUS BLOOD GAS PCO2 48 mmHg (40-60); VENOUS BLOOD GAS PO2 32 mm/Hg (30-55); VENOUS BLOOD PH 7.36 (7.32-7.43)
[2018-10-25 20:05] LABS: BLOOD UREA NITROGEN 19 mg/dl (9-20); CALCIUM 9.2 mg/dL (8.4-10.2); GFR NON-AFRICAN AMERICAN 43
[2018-10-25 20:14] LABS: B-TYPE NATRIURETIC PEPTIDE 609 pg/ml (0-900)
--- NOTE | 2018-10-25 21:19 | ED PDOC ---
HPI: Chest Pain Time Seen by Provider: 10/25/18 19:15 Chief Complaint (Nursing): Chest Pain Chief Complaint (Provider): Chest Pain History Per: Patient History/Exam Limitations: no limitations Onset/Duration Of Symptoms: Days (2x) Current Symptoms Are (Timing): Still Present Severity: Moderate Additional Complaint(s): 73 year old male with a recent history of a cardiac catheterization in 08/2018 presents to the ED for an evaluation of chest pain that began yesterday, and severely worsened overnight to today. Patient reports trying to lie down today to take a nap in this afternoon, and felt dizziness as if he was being lifted out of the bed. Patient denies vomiting, having shortness of breath, and fevers. PMD: Saranya Almeida MD Past Medical History Reviewed: Historical Data, Nursing Documentation, Vital Signs Vital Signs: Last Vital Signs Temp 98.0 F 10/25/18 18:18 Pulse 60 10/25/18 18:18 Resp 16 10/25/18 18:18 BP 158/77 H 10/25/18 18:18 Pulse Ox 98 10/25/18 18:18 MIQUEL Report Viewed: Yes - Medical History PMH: Anxiety, Arthritis, Gastritis, HTN, Hypercholesterolemia, Hyperlipidemia Denies: HIV, Chronic Kidney Disease - Surgical History Surgical History: CABG (2008), Coronary Stent (2), Endoscopy (2012), Pacemaker (2004, removed 2007) Other surgeries: recent cardiac catheterization - Family History Family History: States: No Known Family Hx - Social History Current smoker - smoking cessation education provided: No Alcohol: None Drugs: Denies - Immunization History Hx Tetanus Toxoid Vaccination: No - Home Medications Home Medications: Ambulatory Orders Medication Instructions Recorded RX: Aspirin [Adult Low Dose 1 tab PO DAILY #30 tablet. 07/06/18 Aspirin EC] RX: Atorvastatin [Lipitor] 10 mg PO HS #30 tab 07/06/18 RX: Lisinopril/Hydrochlorothiazide 1 tab PO DAILY #30 tablet 07/06/18 [Lisinopril-Hctz 10-12.5 mg Tab] RX: Meclizine [Antivert] 12.5 mg PO Q6 PRN #12 tab 07/16/18 RX: Clopidogrel [Plavix] 75 mg PO DAILY 08/21/18 RX: ALPRAZolam [Xanax] 1 mg PO TID 10/25/18 RX: Carvedilol [Coreg] 6.25 mg PO BID 10/25/18 RX: Escitalopram [Lexapro] 10 mg PO DAILY 10/25/18 RX: Omeprazole 20 mg PO DAILY 10/25/18 RX: Tamsulosin [Flomax] 0.4 mg PO DAILY 10/25/18 - Allergies Allergies/Adverse Reactions: Allergies Allergy/AdvReac Type Severity Reaction Status Date / Time duloxetine [From Cymbalta] Allergy Intermediate RASH Verified 10/25/18 18:17 pregabalin [From Lyrica] AdvReac Severe EXTREME Verified 10/25/18 18:17 FATIGUE IV CONTRAST Allergy Intermediate RASH Uncoded 10/25/18 18:17 Review of Systems ROS Statement: Except As Marked, All Systems Reviewed And Found Negative Constitutional: Negative for: Fever Cardiovascular: Positive for: Chest Pain Respiratory: Negative for: Shortness of Breath Gastrointestinal: Negative for: Vomiting Neurological: Positive for: Dizziness (when lying down) Physical Exam - Reviewed Nursing Documentation Reviewed: Yes Vital Signs Reviewed: Yes - Physical Exam Appears: Positive for: Well, Non-toxic, No Acute Distress Head Exam: Positive for: ATRAUMATIC, NORMOCEPHALIC Skin: Positive for: Normal Color, Warm, Dry Cardiovascular/Chest: Positive for: Regular Rate, Rhythm, Other (well healed midline surgical scar) Respiratory: Positive for: Normal Breath Sounds. Negative for: Respiratory Distress Gastrointestinal/Abdominal: Positive for: Other (well healed scar in groin from catheterization) Extremity: Positive for: Normal ROM. Negative for: Swelling Neurologic/Psych: Positive for: Alert, Oriented (3x) - Laboratory Results Result Diagrams: 10/25/18 19:35 10/26/18 04:30 - ECG O2 Sat by Pulse Oximetry: 98 (RA) Pulse Ox Interpretation: Normal Medical Decision Making Medical Decision Makin:15 Initial impression: 73 year old male with chest pain. Workup for chest pain in high risk patient. * Cardiac enzymes * Will give patient a dose of plavix as patient states he did not take it today Most likely admission 21:19 Patient will be admitted to telemetry under Saranya Almeida MD for chest pain. Scribe Attestation: Documented byJudith Pan, acting as a scribe for Judith Stringer MD. Provider Scribe Attestation: All medical record entries made by the Scribe were at my direction and personally dictated by me. I have reviewed the chart and agree that the record accurately reflects my personal performance of the history, physical exam, medical decision making, and the department course for this patient. I have also personally directed, reviewed, and agree with the discharge instructions and disposition. Disposition - Clinical Impression Clinical Impression: Acute chest pain - Patient ED Disposition Is Patient to be Admitted: Yes - Disposition Disposition Time: 21:19 Condition: GUARDED
--- NOTE | 2018-10-25 22:48 | CP.PCM.HP ---
<Jeremy Casillas - Last Filed: 10/26/18 00:00> History of Present Illness - History of Present Illness History of Present Illness: 73 yo M with pmhx of HTN, HLD, CAD c/p CABG with stent in 2012 and restenting 07/2018, prostate cancer s/p prostatectomy, depression, CKD stage three presents with chest pain. Chest pain bgan approximately 4 days ago while at rest. Pain is at L mid clavicular at level of 3-5 ribs. sharp, intermittently lasting for seconds. Occasionally radiating to R chest. Associated with diaphoresis. Not exacerbated with exertion. No SOB, or vomiting or palpitations. He also reports his gait has been progressively weaker in the recent weeks. He used to have bi weekly PT with home services but they were both recently stopped. PMD: [facility] with Dr. Rico Cardio: Dr. Ruiz Stack Surg: CABG, prostatectomy, cholecystectomy soc: Denies smoking, alcohol, illicit drugs Famhx: mother with stomach cancer, Father with throat cancer Allergy to Duloxetine, pregabalin, and IV CONTRAST. Present on Admission - Present on Admission Any Indicators Present on Admission: No History of Uncontrolled Diabetes: No Past Patient History - Past Medical History & Family History Past Medical History?: Yes - Past Social History Alcohol: None Drugs: Denies - CARDIAC Hx Hypercholesterolemia: Yes Hx Hypertension: Yes Hx Pacemaker: Yes (2004, removed 2007) - PULMONARY Hx Respiratory Disorders: Yes (USED TO SMOKE CIGARETTES > PPD) - NEUROLOGICAL Hx Paralysis: No - HEENT Hx HEENT Problems: Yes Hx Cataracts: Yes (b/l eyes) Hx Glaucoma: Yes - RENAL Hx Chronic Kidney Disease: No - ENDOCRINE/METABOLIC Hx Endocrine Disorders: No - HEMATOLOGICAL/ONCOLOGICAL Hx Human Immunodeficiency Virus (HIV): No - INTEGUMENTARY Hx Dermatological Problems: Yes Hx Eczema: Yes - MUSCULOSKELETAL/RHEUMATOLOGICAL Hx Arthritis: Yes - GASTROINTESTINAL Hx Gastritis: Yes - GENITOURINARY/GYNECOLOGICAL Hx Prostate Problems: Yes (TURP) - PSYCHIATRIC Hx Anxiety: Yes - SURGICAL HISTORY Hx Coronary Artery Bypass Graft: Yes (2008) Hx Coronary Stent: Yes (2) - ANESTHESIA Hx Anesthesia Reactions: No Hx Malignant Hyperthermia: No Meds Allergies/Adverse Reactions: Allergies Allergy/AdvReac Type Severity Reaction Status Date / Time duloxetine [From Cymbalta] Allergy Intermediate RASH Verified 10/25/18 18:17 pregabalin [From Lyrica] AdvReac Severe EXTREME Verified 10/25/18 18:17 FATIGUE IV CONTRAST Allergy Intermediate RASH Uncoded 10/25/18 18:17 Results - Vital Signs Recent Vital Signs: Last Vital Signs Temp 98.0 F 10/25/18 18:18 Pulse 60 10/25/18 18:18 Resp 16 10/25/18 18:18 BP 158/77 H 10/25/18 18:18 Pulse Ox 98 10/25/18 21:26 - Labs Result Diagrams: 10/25/18 19:35 10/25/18 19:35 Labs: Laboratory Results - last 24 hr 10/25/18 10/25/18 10/25/18 19:34 19:35 19:35 WBC 9.4 RBC 4.87 Hgb 13.2 Hct 40.4 MCV 83.0 MCH 27.2 MCHC 32.7 L RDW 14.4 Plt Count 178 MPV 10.2 Neut % (Auto) 63.8 Lymph % (Auto) 12.9 L [place] % (Auto) 9.9 Eos % (Auto) 12.4 H Baso % (Auto) 1.0 Neut # (Auto) 6.0 Lymph # (Auto) 1.2 Austin # (Auto) 0.9 H Eos # (Auto) 1.2 H Baso # (Auto) 0.1 PT INR APTT pO2 VBG pH VBG pCO2 VBG HCO3 VBG Total CO2 VBG O2 Sat (Calc) VBG Base Excess VBG Potassium Glucose Lactate FiO2 Sodium 140 Potassium 4.5 Chloride 104 Carbon Dioxide 27 Anion Gap 14 BUN 19 Creatinine 1.6 H Est GFR ( Amer) 52 Est GFR (Non-Af Amer) 43 Random Glucose 110 Calcium 9.2 Troponin I < 0.0120 NT-Pro-B Natriuret Pep 609 Venous Blood Potassium Influenza Typ A,B (EIA) Negative for flu a/b 10/25/18 10/25/18 19:35 19:48 WBC RBC Hgb Hct MCV MCH MCHC RDW Plt Count MPV Neut % (Auto) Lymph % (Auto) Austin % (Auto) Eos % (Auto) Baso % (Auto) Neut # (Auto) Lymph # (Auto) [place] # (Auto) Eos # (Auto) Baso # (Auto) PT 12.2 INR 1.1 APTT 34.2 pO2 32 VBG pH 7.36 VBG pCO2 48 VBG HCO3 24.7 VBG Total CO2 28.6 H VBG O2 Sat (Calc) 60.7 VBG Base Excess 1.0 VBG Potassium 4.0 Glucose 90 Lactate 1.2 FiO2 21.0 Sodium 137.0 Potassium Chloride 107.0 Carbon Dioxide Anion Gap BUN Creatinine Est GFR ( Amer) Est GFR (Non-Af Amer) Random Glucose Calcium Troponin I NT-Pro-B Natriuret Pep Venous Blood Potassium 4.0 Influenza Typ A,B (EIA) Assessment & Plan - Assessment and Plan (Free Text) Assessment: 73 yo M with pmhx of HTN, HLD, CAD c/p CABG with stent in 2012 and restenting 07/2018, prostate cancer s/p prostatectomy, depression, CKD stage three presents with chest pain; admitted to r/o ACS Plan: Chest pain r/o ACS Admit to tele athletic monitor hx of CABG and recent stenting 2 months prior Cardio: Dr. Stack Troponin neg x1 f/u 2 c/w aspirin, plavix, coreg, home meds HTN c/w home meds monitor vitals CKD Stage 3 monitor po, fluid, electrolytes f/u am labs DLD c/w home meds PT/OT Gait instability Case dw Dr. Andrew Casillas MD PGY2 <Maricruz Morales - Last Filed: 10/26/18 07:07> Results - Vital Signs Recent Vital Signs: Last Vital Signs Temp 97.8 F 10/26/18 05:00 Pulse 59 L 10/26/18 05:00 Resp 18 10/26/18 05:00 BP 134/69 10/26/18 05:00 Pulse Ox 100 10/26/18 05:00 - Labs Result Diagrams: 10/25/18 19:35 10/26/18 04:30 Labs: Laboratory Results - last 24 hr 10/25/18 10/25/18 10/25/18 19:34 19:35 19:35 WBC 9.4 RBC 4.87 Hgb 13.2 Hct 40.4 MCV 83.0 MCH 27.2 MCHC 32.7 L RDW 14.4 Plt Count 178 MPV 10.2 Neut % (Auto) 63.8 Lymph % (Auto) 12.9 L [place] % (Auto) 9.9 Eos % (Auto) 12.4 H Baso % (Auto) 1.0 Neut # (Auto) 6.0 Lymph # (Auto) 1.2 Austin # (Auto) 0.9 H Eos # (Auto) 1.2 H Baso # (Auto) 0.1 PT INR APTT pO2 VBG pH VBG pCO2 VBG HCO3 VBG Total CO2 VBG O2 Sat (Calc) VBG Base Excess VBG Potassium Glucose Lactate FiO2 Sodium 140 Potassium 4.5 Chloride 104 Carbon Dioxide 27 Anion Gap 14 BUN 19 Creatinine 1.6 H Est GFR ( Amer) 52 Est GFR (Non-Af Amer) 43 Random Glucose 110 Calcium 9.2 Troponin I < 0.0120 NT-Pro-B Natriuret Pep 609 Venous Blood Potassium Influenza Typ A,B (EIA) Negative for flu a/b 10/25/18 10/25/18 10/26/18 19:35 19:48 03:00 WBC RBC Hgb Hct MCV MCH MCHC RDW Plt Count MPV Neut % (Auto) Lymph % (Auto) [place] % (Auto) Eos % (Auto) Baso % (Auto) Neut # (Auto) Lymph # (Auto) [place] # (Auto) Eos # (Auto) Baso # (Auto) PT 12.2 INR 1.1 APTT 34.2 pO2 32 VBG pH 7.36 VBG pCO2 48 VBG HCO3 24.7 VBG Total CO2 28.6 H VBG O2 Sat (Calc) 60.7 VBG Base Excess 1.0 VBG Potassium 4.0 Glucose 90 Lactate 1.2 FiO2 21.0 Sodium 137.0 Potassium Chloride 107.0 Carbon Dioxide Anion Gap BUN Creatinine Est GFR ( Amer) Est GFR (Non-Af Amer) Random Glucose Calcium Troponin I 0.0230 NT-Pro-B Natriuret Pep Venous Blood Potassium 4.0 Influenza Typ A,B (EIA) 10/26/18 04:30 WBC RBC Hgb Hct MCV MCH MCHC RDW Plt Count MPV Neut % (Auto) Lymph % (Auto) [place] % (Auto) Eos % (Auto) Baso % (Auto) Neut # (Auto) Lymph # (Auto) [place] # (Auto) Eos # (Auto) Baso # (Auto) PT INR APTT pO2 VBG pH VBG pCO2 VBG HCO3 VBG Total CO2 VBG O2 Sat (Calc) VBG Base Excess VBG Potassium Glucose Lactate FiO2 Sodium 140 Potassium 4.3 Chloride 103 Carbon Dioxide 29 Anion Gap 12 BUN 18 Creatinine 1.4 Est GFR ( Amer) > 60 Est GFR (Non-Af Amer) 50 Random Glucose 86 Calcium 8.8 Troponin I NT-Pro-B Natriuret Pep Venous Blood Potassium Influenza Typ A,B (EIA) Attending/Attestation - Attestation I have personally seen and examined this patient.: Yes I have fully participated in the care of the patient.: Yes I have reviewed all pertinent clinical information: Yes Notes (Text): 10/26/18 07:06 73M s/p CATH WITH LAD stent 2 months ago, reports episodes of unstable angina over the past three days. Uncertain if patient is complaint. Will trend enzymes and repeat EKG if chest pain reoccurs. On Obs, no new changes on EKG. Can d/c home once enzymes trend out and follow up with cardiology.
[2018-10-26 06:02] LABS: BLOOD UREA NITROGEN 18 mg/dl (9-20); CALCIUM 8.8 mg/dL (8.4-10.2); GFR NON-AFRICAN AMERICAN 50
--- NOTE | 2018-10-26 08:14 | RAD ---
Date of service: 10/25/2018 HISTORY: possible admission COMPARISON: Frontal chest radiograph 07/05/2018. FINDINGS: LUNGS: No active pulmonary disease. PLEURA: No significant pleural effusion identified, no pneumothorax apparent. CARDIOVASCULAR: No aortic atherosclerotic calcification present. Potential mild cardiomegaly. No pulmonary vascular congestion however. Apparent orphaned pacemaker lead reiterated at the right heart with no attention generator identified once again. OSSEOUS STRUCTURES: No significant abnormalities. VISUALIZED UPPER ABDOMEN: Normal. OTHER FINDINGS: None. IMPRESSION: No interval acute cardiopulmonary disease. No infiltrate, pleural effusion or pneumothorax. Post CABG changes are again identified as well as potential orphaned pacemaker lead at the right heart.
[2018-10-26 08:46] VITALS: PULSE 60; RESP 20; TEMP 97.9
[2018-10-26] MEDS ORDERED: Pantoprazole 20 mg EC Tab PO SCH (09:00)
[2018-10-26] MEDS ORDERED: Patient's Own Med (Lisinopril/Hydrochlorothiazide [Lisinopril-Hctz 10-12.5 Mg Tab] 1 TAB) PO SCH (09:00)
--- NOTE | 2018-10-26 09:35 | CP.PCM.CON ---
History of Present Illness - History of Present Illness History of Present Illness: 73 yo M presents with chest pain. Chest pain bgan approximately 4 days ago while at rest. Pain is a pinching pain, intermittently lasting for seconds. pain started after he became upset with his neighbors Located on Left and right chest worse with deep inspiration and movement of his arms Not exacerbated with exertion. No SOB, or vomiting or palpitations. pt is asymptomatic this AM - Medical History PMH: Anxiety, Arthritis, Gastritis, HTN, Hypercholesterolemia, Hyperlipidemia CABG (2008), Coronary Stent (2), Endoscopy (2012), Pacemaker (2004, removed 2007) EKG: normal Troponin: neg x 3 Past Patient History - Past Medical History & Family History Past Medical History?: Yes - Past Social History Smoking Status: Former Smoker - CARDIAC Hx Cardiac Disorders: Yes Hx Hypercholesterolemia: Yes Hx Hypertension: Yes Hx Pacemaker: Yes (2004, removed 2007) - PULMONARY Hx Respiratory Disorders: Yes (USED TO SMOKE CIGARETTES > PPD) - NEUROLOGICAL Hx Neurological Disorder: No Hx Paralysis: No - HEENT Hx HEENT Problems: Yes Hx Cataracts: Yes (b/l eyes) Hx Glaucoma: Yes - RENAL Hx Chronic Kidney Disease: No - ENDOCRINE/METABOLIC Hx Endocrine Disorders: No - HEMATOLOGICAL/ONCOLOGICAL Hx Human Immunodeficiency Virus (HIV): No - INTEGUMENTARY Hx Dermatological Problems: Yes Hx Eczema: Yes - MUSCULOSKELETAL/RHEUMATOLOGICAL Hx Musculoskeletal Disorders: Yes Hx Arthritis: Yes Hx Falls: Yes - GASTROINTESTINAL Hx Gastrointestinal Disorders: Yes Hx Gastritis: Yes - GENITOURINARY/GYNECOLOGICAL Hx Genitourinary Disorders: Yes Hx Prostate Problems: Yes (TURP) - PSYCHIATRIC Hx Psychophysiologic Disorder: Yes Hx Anxiety: Yes - SURGICAL HISTORY Hx Surgeries: Yes Hx Coronary Artery Bypass Graft: Yes (2008) Hx Coronary Stent: Yes (2) - ANESTHESIA Hx Anesthesia: Yes Hx Anesthesia Reactions: No Hx Malignant Hyperthermia: No Meds Allergies/Adverse Reactions: Allergies Allergy/AdvReac Type Severity Reaction Status Date / Time duloxetine [From Cymbalta] Allergy Intermediate RASH Verified 10/25/18 18:17 pregabalin [From Lyrica] AdvReac Severe EXTREME Verified 10/25/18 18:17 FATIGUE IV CONTRAST Allergy Intermediate RASH Uncoded 10/25/18 18:17 - Medications Medications: Current Medications Alprazolam (Xanax) 1 mg PO TID MAXIMUS Last Admin: 10/26/18 09:18 Dose: 1 mg Aspirin (Ecotrin) 81 mg PO DAILY [facility] Last Admin: 10/26/18 09:14 Dose: 81 mg Atorvastatin Calcium (Lipitor) 10 mg PO [facility] Carvedilol (Coreg) 6.25 mg PO Q12 [facility] Last Admin: 10/26/18 09:14 Dose: 6.25 mg Clopidogrel Bisulfate (Plavix) 75 mg PO DAILY [facility] Last Admin: 10/26/18 09:15 Dose: 75 mg Hydrochlorothiazide (Microzide) 12.5 mg PO DAILY [facility] Last Admin: 10/26/18 09:15 Dose: 12.5 mg Lisinopril (Zestril) 10 mg PO DAILY [facility] Last Admin: 10/26/18 09:16 Dose: 10 mg Meclizine HCl (Antivert) 12.5 mg PO Q6 PRN PRN Reason: Dizziness Last Admin: 10/26/18 00:12 Dose: 12.5 mg Pantoprazole Sodium (Protonix Ec Tab) 20 mg PO DAILY [facility] Last Admin: 10/26/18 09:15 Dose: 20 mg Physical Exam - Constitutional Appears: Well - Head Exam Head Exam: NORMAL INSPECTION - Eye Exam Eye Exam: Normal appearance - ENT Exam ENT Exam: Normal Exam - Neck Exam Neck exam: Positive for: Normal Inspection - Respiratory Exam Respiratory Exam: NORMAL BREATHING PATTERN - Cardiovascular Exam Cardiovascular Exam: REGULAR RHYTHM Results - Vital Signs Recent Vital Signs: Last Vital Signs Temp 97.9 F 10/26/18 08:46 Pulse 60 10/26/18 08:46 Resp 20 10/26/18 08:46 BP 137/73 10/26/18 09:14 Pulse Ox 100 10/26/18 08:46 - Labs Result Diagrams: 10/25/18 19:35 10/26/18 04:30 Labs: Laboratory Results - last 24 hr 10/25/18 10/25/18 10/25/18 19:34 19:35 19:35 WBC 9.4 RBC 4.87 Hgb 13.2 Hct 40.4 MCV 83.0 MCH 27.2 MCHC 32.7 L RDW 14.4 Plt Count 178 MPV 10.2 Neut % (Auto) 63.8 Lymph % (Auto) 12.9 L [place] % (Auto) 9.9 Eos % (Auto) 12.4 H Baso % (Auto) 1.0 Neut # (Auto) 6.0 Lymph # (Auto) 1.2 [place] # (Auto) 0.9 H Eos # (Auto) 1.2 H Baso # (Auto) 0.1 PT INR APTT pO2 VBG pH VBG pCO2 VBG HCO3 VBG Total CO2 VBG O2 Sat (Calc) VBG Base Excess VBG Potassium Glucose Lactate FiO2 Sodium 140 Potassium 4.5 Chloride 104 Carbon Dioxide 27 Anion Gap 14 BUN 19 Creatinine 1.6 H Est GFR ( Amer) 52 Est GFR (Non-Af Amer) 43 Random Glucose 110 Calcium 9.2 Troponin I < 0.0120 NT-Pro-B Natriuret Pep 609 Venous Blood Potassium Influenza Typ A,B (EIA) Negative for flu a/b 10/25/18 10/25/18 10/26/18 19:35 19:48 03:00 WBC RBC Hgb Hct MCV MCH MCHC RDW Plt Count MPV Neut % (Auto) Lymph % (Auto) [place] % (Auto) Eos % (Auto) Baso % (Auto) Neut # (Auto) Lymph # (Auto) [place] # (Auto) Eos # (Auto) Baso # (Auto) PT 12.2 INR 1.1 APTT 34.2 pO2 32 VBG pH 7.36 VBG pCO2 48 VBG HCO3 24.7 VBG Total CO2 28.6 H VBG O2 Sat (Calc) 60.7 VBG Base Excess 1.0 VBG Potassium 4.0 Glucose 90 Lactate 1.2 FiO2 21.0 Sodium 137.0 Potassium Chloride 107.0 Carbon Dioxide Anion Gap BUN Creatinine Est GFR ( Amer) Est GFR (Non-Af Amer) Random Glucose Calcium Troponin I 0.0230 NT-Pro-B Natriuret Pep Venous Blood Potassium 4.0 Influenza Typ A,B (EIA) 10/26/18 10/26/18 04:30 09:03 WBC RBC Hgb Hct MCV MCH MCHC RDW Plt Count MPV Neut % (Auto) Lymph % (Auto) [place] % (Auto) Eos % (Auto) Baso % (Auto) Neut # (Auto) Lymph # (Auto) [place] # (Auto) Eos # (Auto) Baso # (Auto) PT INR APTT pO2 VBG pH VBG pCO2 VBG HCO3 VBG Total CO2 VBG O2 Sat (Calc) VBG Base Excess VBG Potassium Glucose Lactate FiO2 Sodium 140 Potassium 4.3 Chloride 103 Carbon Dioxide 29 Anion Gap 12 BUN 18 Creatinine 1.4 Est GFR ( Amer) > 60 Est GFR (Non-Af Amer) 50 Random Glucose 86 Calcium 8.8 Troponin I 0.0220 NT-Pro-B Natriuret Pep Venous Blood Potassium Influenza Typ A,B (EIA) Assessment & Plan (1) CAD (coronary artery disease) of artery bypass graft Status: Acute (2) Chest pain Assessment and Plan: The patient's pain appears to be non cardiac in origin pt may be discharged Status: Acute
--- NOTE | 2018-10-26 11:14 | CP.PCM.DIS ---
Provider - Provider Date of Admission: 10/25/18 20:59 Attending physician: Maricruz Morales DO Consults: 10/26/18 08:02 Cardiology Consult Routine Comment: chest pain, hx CABG, stent x 2, troponin neg x 2 Consulting Provider: Jens Stack V Consulting Physician: Jens Stack V Reason for Consult: chest pain, hx CABG, stent x 2, troponin neg x 2 Time Spent in preparation of Discharge (in minutes): 30 Hospital Course - Lab Results Lab Results: Most Recent Lab Values WBC 9.4 K/uL (4.8-10.8) 10/25/18 19:35 RBC 4.87 Mil/uL (4.40-5.90) 10/25/18 19:35 Hgb 13.2 g/dL (12.0-18.0) 10/25/18 19:35 Hct 40.4 % (35.0-51.0) 10/25/18 19:35 MCV 83.0 fl (80.0-94.0) 10/25/18 19:35 MCH 27.2 pg (27.0-31.0) 10/25/18 19:35 MCHC 32.7 g/dL (33.0-37.0) L 10/25/18 19:35 RDW 14.4 % (11.5-14.5) 10/25/18 19:35 Plt Count 178 K/uL (130-400) 10/25/18 19:35 MPV 10.2 fl (7.2-11.7) 10/25/18 19:35 Neut % (Auto) 63.8 % (50.0-75.0) 10/25/18 19:35 Lymph % (Auto) 12.9 % (20.0-40.0) L 10/25/18 19:35 [place] % (Auto) 9.9 % (0.0-10.0) 10/25/18 19:35 Eos % (Auto) 12.4 % (0.0-4.0) H 10/25/18 19:35 Baso % (Auto) 1.0 % (0.0-2.0) 10/25/18 19:35 Neut # (Auto) 6.0 K/uL (1.8-7.0) 10/25/18 19:35 Lymph # (Auto) 1.2 K/uL (1.0-4.3) 10/25/18 19:35 [place] # (Auto) 0.9 K/uL (0.0-0.8) H 10/25/18 19:35 Eos # (Auto) 1.2 K/uL (0.0-0.7) H 10/25/18 19:35 Baso # (Auto) 0.1 K/uL (0.0-0.2) 10/25/18 19:35 PT 12.2 Seconds (9.8-13.1) 10/25/18 19:35 INR 1.1 10/25/18 19:35 APTT 34.2 Seconds (25.6-37.1) 10/25/18 19:35 pO2 32 mm/Hg (30-55) 10/25/18 19:48 VBG pH 7.36 (7.32-7.43) 10/25/18 19:48 VBG pCO2 48 mmHg (40-60) 10/25/18 19:48 VBG HCO3 24.7 mmol/L 10/25/18 19:48 VBG Total CO2 28.6 mmol/L (22-28) H 10/25/18 19:48 VBG O2 Sat (Calc) 60.7 % (40-65) 10/25/18 19:48 VBG Base Excess 1.0 mmol/L (0.0-2.0) 10/25/18 19:48 VBG Potassium 4.0 mmol/L (3.6-5.2) 10/25/18 19:48 Sodium 137.0 mmol/L (132-148) 10/25/18 19:48 Chloride 107.0 mmol/L (98-107) 10/25/18 19:48 Glucose 90 mg/dL (75-110) 10/25/18 19:48 Lactate 1.2 mmol/L (0.7-2.1) 10/25/18 19:48 FiO2 21.0 % 10/25/18 19:48 Sodium 140 mmol/l (132-148) 10/26/18 04:30 Potassium 4.3 MMOL/L (3.6-5.0) 10/26/18 04:30 Chloride 103 mmol/L (98-107) 10/26/18 04:30 Carbon Dioxide 29 mmol/L (22-30) 10/26/18 04:30 Anion Gap 12 (10-20) 10/26/18 04:30 BUN 18 mg/dl (9-20) 10/26/18 04:30 Creatinine 1.4 mg/dl (0.8-1.5) 10/26/18 04:30 Est GFR ( Amer) > 60 10/26/18 04:30 Est GFR (Non-Af Amer) 50 10/26/18 04:30 Random Glucose 86 mg/dL (75-110) 10/26/18 04:30 Calcium 8.8 mg/dL (8.4-10.2) 10/26/18 04:30 Troponin I 0.0220 ng/mL (0.00-0.120) 10/26/18 09:03 NT-Pro-B Natriuret Pep 609 pg/ml (0-900) 10/25/18 19:35 Venous Blood Potassium 4.0 mmol/L (3.6-5.2) 10/25/18 19:48 Influenza Typ A,B (EIA) Negative for flu a/b (NEGATIVE) 10/25/18 19:34 - Hospital Course Hospital Course: 73 yo M with pmhx of HTN, HLD, CAD c/p CABG with stent in 2012 and restenting 07/2018, prostate cancer s/p prostatectomy, depression, CKD stage three admitted for chest pain. Patient received single dose of xanax 1 mg PO and Meclizine 12.5 mg PO and continued on his home medications during his hospital stay. Patient chest pain improved, 3 negative Troponin blood tests obtained. Patient is stable now. During his hospital course; Patient didn't have any acute events or distress. Patient discharged home. Patient to continue his home medications upon discharge. patient to follow up with Dr. Stack. Assessment: 73 yo M with pmhx of HTN, HLD, CAD c/p CABG with stent in 2012 and restenting 07/2018, prostate cancer s/p prostatectomy, depression, CKD stage three presents with chest pain; admitted to r/o ACS Plan: Chest pain ACS ruled out Admitted overnight to telemetry hx of CABG and recent stenting 2 months prior F/U with Dr. Stack upon discharge Troponin neg x3 c/w aspirin, plavix, coreg, home meds Discharge Exam - Head Exam Head Exam: ATRAUMATIC, NORMOCEPHALIC - Eye Exam Eye Exam: EOMI, Normal appearance, PERRL Pupil Exam: NORMAL ACCOMODATION, PERRL - ENT Exam ENT Exam: Mucous Membranes Moist - Neck Exam Neck exam: Full Rom, Normal Inspection - Respiratory Exam Respiratory Exam: Clear to PA & Lateral, NORMAL BREATHING PATTERN, UNREMARKABLE - Cardiovascular Exam Cardiovascular Exam: REGULAR RHYTHM, +S1, +S2 - GI/Abdominal Exam GI & Abdominal Exam: Normal Bowel Sounds, Unremarkable - Extremities Exam Extremities exam: normal capillary refill - Back Exam Back exam: NORMAL INSPECTION - Neurological Exam Neurological exam: Alert, Oriented x3 - Psychiatric Exam Psychiatric exam: Normal Affect, Normal Mood - Skin Skin Exam: Dry, Intact, Normal Color, Warm Discharge Plan - Follow Up Plan Condition: GOOD Disposition: HOME/ ROUTINE
[2018-10-26 12:40] VITALS: BP 115/64
--- NOTE | 2018-10-26 14:30 | CARD ---
APPROVED REPORT Date of service: 10/25/2018 EKG Measurement Heart [id number] <Conclusion> Normal sinus rhythm Normal ECG
[2018-10-28 16:54] VITALS: O2SAT 98
== END 2018-10-26 13:40 | disposition home or self-care (01) ==
LOC: H.ER 18:13 → H.ERHOLD 20:59 → INTOOBSV 20:59 → H.TEL 23:39
PROVIDERS: ADMIT Student in an Organized Health Care Education/Training Program; ATTEND Student in an Organized Health Care Education/Training Program
DX: R07.89 Other chest pain (principal); F41.8 Other specified anxiety disorders; N18.3 Chronic kidney disease, stage 3 (moderate); I12.9 Hypertensive chronic kidney disease with stage 1 through stage 4 chronic kidney disease, or unspecified chronic kidney disease; I25.10 Atherosclerotic heart disease of native coronary artery without angina pectoris; K29.70 Gastritis, unspecified, without bleeding; E78.5 Hyperlipidemia, unspecified; E78.00 Pure hypercholesterolemia, unspecified; Z79.82 Long term (current) use of aspirin; Z79.02 Long term (current) use of antithrombotics/antiplatelets; Z85.46 Personal history of malignant neoplasm of prostate; Z95.0 Presence of cardiac pacemaker; Z95.1 Presence of aortocoronary bypass graft; Z95.5 Presence of coronary angioplasty implant and graft; Z87.891 Personal history of nicotine dependence
CPT/HCPCS: 36415; 71045; 80048; 82803; 83880; 84484; 85025; 85610; 85730; 87804; 93005; 97162; 97165; 99285; G0378; G8978; G8979; G8987; G8988